=== PATIENT | female | born 1980 | race Hispanic/Latino ===

== ENCOUNTER 2017-04-28 17:50 | Inpatient (IN) | payer MEDICARE ==
[~2017-04-28 17:50] MED LIST: ATIVAN ONE
--- NOTE | 2017-04-28 18:00 | Emergency Department Report ---
ED Seizure HPI - General Stated Complaint: SEIZURE Time Seen by Provider: 04/28/17 18:00 - History of Present Illness Initial Comments: Patient is a 36-year-old female past medical history of seizure disorder. Presents with multiple seizures history is limited due to patient's condition. History provided by boyfriend and EMS. Patient had multiple seizure episodes today she takes Keppra and other medications that the boyfriend can't remember. Today the patient was having multiple seizures back to back and vomited she called EMS. She was having a seizure when EMS arrived and she was giving 5 mg of Versed. Patient comes into the ED actively seizing. - Related Data Home Medications Medication Instructions Recorded Confirmed Last Taken ALPRAZolam [Xanax TAB] 2 mg PO BID 04/28/17 04/28/17 Unknown ARIPiprazole [Abilify TAB] 15 mg PO QHS 04/28/17 04/28/17 Unknown Dextroamphetamine/Amphetamine 20 mg PO BID 04/28/17 04/28/17 Unknown [Adderall] Meloxicam [Mobic] 15 mg PO BID PRN 04/28/17 04/28/17 Unknown Multivitamin Tab [Multiple Vitamin 1 tab PO QDAY 04/28/17 04/28/17 Unknown TAB (Theragran)] Phenytoin [Dilantin] 100 mg PO TID 04/28/17 04/28/17 Unknown Quetiapine Fumarate [SEROquel XR] 300 mg PO QHS 04/28/17 04/28/17 Unknown Allergies Allergy/AdvReac Type Severity Reaction Status Date / Time amoxicillin Allergy Angioedema Verified 03/03/16 18:39 cefaclor [From Ceclor] Allergy Rash Verified 04/28/17 18:26 erythromycin base Allergy Angioedema Verified 03/03/16 18:39 ketorolac tromethamine Allergy Seizure Verified 03/03/16 18:39 [From Toradol] latex Allergy Rash Verified 04/28/17 18:26 morphine Allergy Rash Verified 04/28/17 18:26 Penicillins Allergy Angioedema Verified 03/03/16 18:39 sulfamethoxazole Allergy Rash Verified 04/28/17 18:26 [From Bactrim] tramadol Allergy Seizure Verified 04/28/17 18:26 trimethoprim [From Bactrim] Allergy Rash Verified 04/28/17 18:26 ED Review of Systems ROS: Stated complaint: SEIZURE Other details as noted in HPI Comment: Unobtainable due to pts medical conditions (patient is seizing) ED Past Medical Hx - Past Medical History Hx Hypertension: Yes Hx Seizures: Yes Hx Psychiatric Treatment: Yes (PTSD) - Surgical History Additional Surgical History: hysterectomy,tubiligation x2 - Social History Smoking Status: Current Every Day Smoker Substance Use Type: None - Medications Home Medications: Home Medications Medication Instructions Recorded Confirmed Last Taken Type ALPRAZolam [Xanax TAB] 2 mg PO BID 04/28/17 04/28/17 Unknown History ARIPiprazole [Abilify TAB] 15 mg PO QHS 04/28/17 04/28/17 Unknown History Dextroamphetamine/Amphetamine 20 mg PO BID 04/28/17 04/28/17 Unknown History [Adderall] Meloxicam [Mobic] 15 mg PO BID PRN 04/28/17 04/28/17 Unknown History Multivitamin Tab [Multiple Vitamin 1 tab PO QDAY 04/28/17 04/28/17 Unknown History TAB (Theragran)] Phenytoin [Dilantin] 100 mg PO TID 04/28/17 04/28/17 Unknown History Quetiapine Fumarate [SEROquel XR] 300 mg PO QHS 04/28/17 04/28/17 Unknown History ED Physical Exam - General General appearance: obtunded - Head Head exam: Present: atraumatic, normocephalic - Eye Eye exam: Present: normal appearance, other (pupils are sluggish response to light) - ENT ENT exam: Present: normal exam - Neck Neck exam: Present: normal inspection - Respiratory Respiratory exam: Present: normal lung sounds bilaterally - Cardiovascular Cardiovascular Exam: Present: regular rate - GI/Abdominal GI/Abdominal exam: Present: soft. Absent: distended, tenderness - Extremities Exam Extremities exam: Absent: tenderness, joint swelling - Neurological Exam Neurological exam: Present: altered, CN II-XII intact - Psychiatric Psychiatric exam: Present: normal affect - Skin Skin exam: Present: warm ED Course Vital Signs 04/28/17 04/28/17 04/28/17 17:50 18:00 18:10 Temperature 98.0 F Pulse Rate 107 H 120 H 105 H Respiratory 20 28 H 15 Rate Blood Pressure 121/86 121/86 121/85 O2 Sat by Pulse 98 98 96 Oximetry 04/28/17 04/28/17 04/28/17 18:20 18:30 18:40 Temperature Pulse Rate 86 99 H 100 H Respiratory 25 H 20 18 Rate Blood Pressure 116/84 107/77 107/77 O2 Sat by Pulse 99 98 99 Oximetry 04/28/17 04/28/17 04/28/17 18:48 18:50 19:09 Temperature Pulse Rate 93 H Respiratory 20 19 Rate Blood Pressure 110/74 110/74 O2 Sat by Pulse 100 100 Oximetry 04/28/17 04/28/17 04/28/17 19:10 19:20 19:30 Temperature Pulse Rate 90 90 90 Respiratory 13 20 14 Rate Blood Pressure 110/74 108/75 114/68 O2 Sat by Pulse 100 99 98 Oximetry 04/28/17 04/28/17 04/28/17 19:40 19:46 19:50 Temperature Pulse Rate 98 H 89 Respiratory 16 16 16 Rate Blood Pressure 114/68 110/75 O2 Sat by Pulse 98 97 Oximetry 04/28/17 04/28/17 04/28/17 20:00 20:10 20:20 Temperature Pulse Rate 88 107 H 91 H Respiratory 15 13 17 Rate Blood Pressure 110/78 110/78 105/74 O2 Sat by Pulse 97 98 97 Oximetry 04/28/17 04/28/17 04/28/17 20:30 20:41 20:51 Temperature Pulse Rate 91 H 99 H 87 Respiratory 14 21 17 Rate Blood Pressure 112/75 105/74 105/74 O2 Sat by Pulse 98 98 98 Oximetry 04/28/17 04/28/17 04/28/17 21:01 21:11 21:21 Temperature Pulse Rate 94 H 103 H 88 Respiratory 20 16 17 Rate Blood Pressure 105/74 105/74 105/74 O2 Sat by Pulse 99 98 99 Oximetry 04/28/17 04/28/17 04/28/17 21:31 21:55 21:57 Temperature Pulse Rate 101 H Respiratory 20 18 18 Rate Blood Pressure 105/74 O2 Sat by Pulse 99 Oximetry - Reevaluation(s) Reevaluation #1: 04/28/17 22:22 Patient is no longer postictal discussed the patient that she will be admitted to the hospital for further care sugars and plan. She still states she is in pain we'll give patient a dose of IV fentanyl. ED Medical Decision Making - Lab Data Result diagrams: 04/28/17 18:18 04/28/17 18:18 Laboratory Results - last 24 hr 04/28/17 04/28/17 04/28/17 18:18 18:18 18:18 WBC 7.2 RBC 4.36 Hgb 14.0 Hct 41.0 MCV 94 MCH 32 MCHC 34 RDW 13.5 Plt Count 240 Lymph % (Auto) 32.4 [place] % (Auto) 12.0 H Eos % (Auto) 9.7 H Baso % (Auto) 0.5 Lymph # 2.3 [place] # 0.9 H Eos # 0.7 H Baso # 0.0 Seg Neutrophils % 45.4 Seg Neutrophils # 3.3 Sodium 139 Potassium 3.5 L Chloride 100.1 Carbon Dioxide 26 Anion Gap 16 BUN 3 L Creatinine 0.8 Estimated GFR > 60 BUN/Creatinine Ratio 3.75 Glucose 87 Lactic Acid 2.00 Calcium 10.0 Total Bilirubin 0.30 AST 148 H ALT 229 H Alkaline Phosphatase 105 Total Creatine Kinase Total Protein 5.5 L Albumin 3.6 L Albumin/Globulin Ratio 1.9 04/28/17 18:18 WBC RBC Hgb Hct MCV MCH MCHC RDW Plt Count Lymph % (Auto) [place] % (Auto) Eos % (Auto) Baso % (Auto) Lymph # [place] # Eos # Baso # Seg Neutrophils % Seg Neutrophils # Sodium Potassium Chloride Carbon Dioxide Anion Gap BUN Creatinine Estimated GFR BUN/Creatinine Ratio Glucose Lactic Acid Calcium Total Bilirubin AST ALT Alkaline Phosphatase Total Creatine Kinase 650 H Total Protein Albumin Albumin/Globulin Ratio - Radiology Data Radiology results: report reviewed, image reviewed CT imaging of head shows no acute intracranial abnormality. - Medical Decision Making Chief medical diagnosis: Status epilepticus Differential diagnosis: Pseudoseizure, hyponatremia, brain tumor We'll get CBC, lactic acid, UA, drug screen, CT head, Ativan, Keppra Patient has multiple episodes of seizures greater than 3 in the ED however this she has only been post ictal for the first seizure. We'll continue to monitor due to patient's multiple [id number] seizures patient will be admitted to the hospital discussed plan with the patient's boyfriend and patient they agree with plan Critical Care Time: Yes Critical care time in (mins) excluding proc time.: 30 Critical care attestation.: If time is entered above; I have spent that time in minutes in the direct care of this critically ill patient, excluding procedure time. Critical care time in evaluating patient 20 minutes Critical care and interpreting image and lab studies 5 minutes Critical care time spent reviewing old records 0 minutes Critical care time spent with family 5 minutes Critical Care Time: 30 minutes spent at patient's that time due to multiple [id number] seizures patient had in the ER. ED Disposition Clinical Impression: Elevated liver enzymes, Elevated creatine kinase level, Seizures, Myalgia Disposition: OP ADMIT IP TO THIS HOSP Is pt being admited?: Yes Does the pt Need Aspirin: No Condition: Stable Time of Disposition: 22:18
[2017-04-28] MEDS ORDERED: ZOFRAN IV ONE (18:02)
[2017-04-28] MEDS ORDERED: SUBLIMAZE IV ONE ×2 (18:03→21:38)
[2017-04-28] MEDS ORDERED: NACL 0.9% 1000 ML 1,000 ML IV ONE ×2 (18:03→21:01)
[2017-04-28] MEDS ORDERED: KEPPRA 1,000 MG in D5W 100 ML IV ONE (18:11)
[2017-04-28] MEDS ORDERED: KEPPRA 1,000 MG/NS 0.75% 100ML 1,000 MG/100 ML BAG IV ONE (18:11)
[2017-04-28 18:37] LABS: Basophils % (Auto) 0.5 % (0.0-1.8); Eosinophils % (Auto) 9.7 % (0.0-4.3); Mean Corpuscular HGB Conc 34 % (30-34); Mean Corpuscular Hemoglobin 32 pg (28-32); Mean Corpuscular Volume 94 fl (79-97); Platelet Count 240 K/mm3 (140-440); Red Blood Count 4.36 M/mm3 (3.65-5.03); Red Cell Distribution Width 13.5 % (13.2-15.2); White Blood Count 7.2 K/mm3 (4.5-11.0)
[2017-04-28 18:58] LABS: Alanine Aminotransferase 229 units/L (7-56); Albumin 3.6 g/dL (3.9-5); Albumin/Globulin Ratio 1.9 %; Alkaline Phosphatase 105 units/L (35-129); BUN/Creatinine Ratio 3.75; Blood Urea Nitrogen 3 mg/dL (7-17); Carbon Dioxide 26 mmol/L (22-30); Glucose 87 mg/dL (65-100); Total Protein 5.5 g/dL (6.3-8.2)
[2017-04-28 18:59] LABS: Anion Gap 16 mmol/L; Chloride 100.1 mmol/L (98-107); Potassium 3.5 mmol/L (3.6-5.0); Sodium 139 mmol/L (137-145)
--- NOTE | 2017-04-28 19:31 | Cat Scan Report ---
FINAL REPORT EXAM: CT HEAD/BRAIN WO CON HISTORY: seizures TECHNIQUE: CT was performed from the foramen magnum through the vertex in the axial plane without the use of intravenous contrast. PRIORS: None. FINDINGS: The fitzpatrick/white matter attenuation pattern is normal. There is no mass lesion or mass effect. There are no abnormal extra-axial fluid collections. There is no evidence of acute intracranial hemorrhage or infarct. The ventricles are of normal size and configuration. The skull and orbits are unremarkable. There is mild mucosal thickening in the bilateral maxillary sinuses which were not completely scanned. IMPRESSION: Normal CT of the head.
--- NOTE | 2017-04-28 21:08 | Admit Criteria Form ---
Admission Criteria Documentation: SEIZURE Clinical Indications for Admission to Inpatient Care (Place 'X' for any and all applicable criteria): Admission is indicated for seizure and ANY ONE of the following(1)(2)(3)(4)(5): [X ]I. Inpatient admission required rather than observation care (Also use Seizure: Observation Care Criteria as appropriate) because of ANY ONE of the following: [ ]a) Altered mental status that is severe or persistent [ ]b) New focal neurologic deficit that is severe or persistent [ ]c) Metabolic disorder (eg, hypoglycemia, hyponatremia) that is severe or persistent [ X]d) Recurrent seizure [ ]e) Outpatient antiseizure regimen cannot be established (eg , patient cannot tolerate medication, initiation requires inpatient care) [ ]f) Need for ongoing intravenous infusion of antiseizure medication [ ]g) Cardiac arrhythmias of immediate concern [ ]h) Cerebral bleeding, hydrocephalus, or vasospasm monitoring (14) [ ]i) Increased intracranial pressure or cerebral edema monitoring (15) [X ]j) Other treatment or monitoring requiring inpatient admission [ ]II. Status epilepticus [A] or repetitive seizures not controlled with emergent treatment (6)(8) [ ]III. Brain disorder (eg, tumor, edema, and hydrocephalus) that requiring monitoring or intervention available only at inpatient level of care. [ ]IV. Brain insult (eg, severe trauma, stroke, drug toxicity, or withdrawal) that requires monitoring or intervention available only at inpatient level of care (10)(11) Extended stay beyond goal length of stay may be needed for (22) [ ]a) Complications of status epilepticus [ ]b) Refractory status epilepticus [ ]c) Etiology-specific therapy for conditions such as MATRIX SUPERVISOR infection, head injury,eclampsia, severe metabolic abnormalities, and brain tumor [ ]d) Residual neurologic damage, [ ]e) Initiation of significant change to anticonvulsant treatment [ ]f) Older patients (65 years or older) [ ]g) Patient requiring intubation (eg, to protect airway) The original [facility] content created by [facility] has been revised. The portions of the content which have been revised are identified through the use of italic text or in bold, and [facility] has neither reviewed nor approved the modified material. All other unmodified content is copyright [facility]. Please see references footnoted in the original [facility] edition 2016 Admission Criteria Met: Yes
[2017-04-28] MEDS ORDERED: MORPHINE IV ONE (21:28)
[2017-04-28] MEDS: DILAUDID IV PRN (22:44)
[2017-04-28] MEDS: ABILIFY PO SCH (23:00)
[2017-04-28] MEDS ORDERED: NACL 0.9% 1000 ML 1,000 ML IV SCH (23:00)
[2017-04-28] MEDS: KEPPRA 500 MG in D5W 100 ML IV SCH (23:00)
[2017-04-29 02:01] LABS: Creatine Kinase MB 9.4 ng/mL (0.0-4.0)
[2017-04-29 02:06] LABS: Creatine Kinase 511 units/L (30-135)
[2017-04-29 06:30] LABS: Creatine Kinase MB 8.4 ng/mL (0.0-4.0)
[2017-04-29 06:31] LABS: Creatine Kinase 457 units/L (30-135)
[2017-04-29 06:43] LABS: BUN/Creatinine Ratio 3.75; Blood Urea Nitrogen 3 mg/dL (7-17); Calcium 8.4 mg/dL (8.4-10.2); Carbon Dioxide 20 mmol/L (22-30); Chloride 105.2 mmol/L (98-107); Glucose 81 mg/dL (65-100); Sodium 138 mmol/L (137-145)
[2017-04-29] MEDS: ZOFRAN IV PRN ×2 (07:10→20:53)
[2017-04-29 07:12] LABS: Anion Gap 18 mmol/L; Potassium 4.7 mmol/L (3.6-5.0)
--- NOTE | 2017-04-29 08:16 | History and Physical Report ---
CHIEF COMPLAINT: Seizure attack. HISTORY OF PRESENTING ILLNESS: The patient is a 36-year-old female noted to have had current seizure going on for the last few days. Patient's significant other said that the patient has had multiple seizures in the last 1 week and also boyfriend noted that the frequency of seizure type was more on 04/28/2017 and said that he believes that the Dilantin medication that the patient is taking is no longer working. The patient denied history of ingestion of alcohol and was brought in by EMS to the Emergency Room actively seizing. There was no history of biting of tongue or injury. The patient was subsequently giving medications that include Keppra and patient's seizure activity eventually stopped. PAST MEDICAL HISTORY: Pertinent for seizure disorder, also the patient has past history of hypertension and PTSD. PAST SURGICAL HISTORY: Pertinent for hysterectomy and tubal ligation. FAMILY HISTORY: Noncontributory. SOCIAL HISTORY: The patient smokes cigarettes on daily disease, does not drink alcohol and does not use illicit drugs. MEDICATIONS: The patient is on Xanax 2 mg by mouth twice daily, Abilify 15 mg by mouth at bedtime, Adderall 20 mg p.o. b.i.d., Mobic or meloxicam 15 mg by mouth twice daily, multivitamin 1 tablet by mouth daily, Dilantin 100 mg by mouth t.i.d., quetiapine or Seroquel XR 300 mg at bedtime. ALLERGIES: THE PATIENT IS ALLERGIC TO AMOXICILLIN, CEFACLOR, ERYTHROMYCIN BASED ON OTHER MEDICATIONS. REVIEW OF SYSTEMS: CONSTITUTIONAL: There is no fever, no chills, no diaphoresis. HEENT: There is no headache or sore throat. CARDIOVASCULAR: There is no chest pain or orthopnea. RESPIRATORY: There is no shortness of breath or cough. GASTROINTESTINAL: Nausea and vomiting noted. There is no abdominal pain, diarrhea or constipation. NEUROLOGICAL: Seizure attach noted with change in mental status after the seizure attach noted. MUSCULOSKELETAL: Generalized body pain noted. No joint swelling. DERMATOLOGICAL: There is no skin rash or itching. GENITOURINARY: There is no dysuria, hematuria, flank pain or urinary incontinence. Rest of system review is normal. PHYSICAL EXAMINATION: GENERAL: At the time of exam, the patient was found to be lethargic, but arousable and able to communicate, looking weak, but not in acute distress. VITAL SIGNS: Show temperature of 98.5, pulse of 92, respirations 15, blood pressure 112/74, O2 sat of 93% on room air. HEENT: Shows pupils to be equal, round and reactive to light and accommodating. Extraocular muscles are intact. NECK: Supple with no JVD or carotid bruit. CARDIOVASCULAR: Shows first and second heart sounds with no gallops or murmur. RESPIRATORY: Showed good air entry on both sides of the lung with no abnormal breath sounds. GASTROINTESTINAL: Showed abdomen to be full, soft, nontender with no organomegaly or rigidity. NEUROLOGIC: Shows no focal deficit, but said that the patient is lethargic, but arousable and able to communicate. MUSCULOSKELETAL: Shows no joint swelling or tenderness. DERMATOLOGICAL: Shows no skin rash. GENITOURINARY: Showing no costovertebral angle tenderness. PERTINENT LABORATORY AND IMAGING STUDIES: The patient had a CT of the head done without contrast that was unremarkable. CBC showed normal white count, normal hemoglobin and normal hematocrit with CBC differential showing high monocyte count and high eosinophil count. The patient's chemistry shows slight decrease in potassium with value of 3.5 and normal sodium, normal chloride and liver transaminases showed elevated AST of 148-229, normal alkaline phosphatase with elevated total creatinine kinase of 650. The patient's albumin level shows slightly decreased level of 3.6. DIAGNOSES: 1. Postictal state. 2. Rhabdomyolysis. 3. Acute gastritis. PLAN: The patient will be admitted to medical floor on telemetry and will have neurology consult if the neurologist is available today. The patient will have basic metabolic panel checked in the morning of 04/29/2017 and will have cardiac enzymes involving troponin, total CK and CK-MB checked q. 6 hours x2 more level because of the diagnosis of rhabdomyolysis. The patient will be on IV Keppra 500 mg q. 12 hours. The patient will be on IV hydromorphone or Dilaudid 1 mg q. 6 hours as needed for pain. THE PATIENT IS ALLERGIC TO MORPHINE. She states she has had Dilaudid in the past. The patient will also be on IV Zofran 4 mg every 6 hours as needed for nausea and vomiting and will be on IV normal saline at 125 mL an hour. The patient will be on her home medications as listed in the medication reconciliation section and the patient will continue on Keppra until evaluated by a neurologist. JOB# [id number] OCN/PETEY CALDERA
[2017-04-29] MEDS ORDERED: THERAGRAN Tab PO SCH (10:00)
[2017-04-29] MEDS ORDERED: HEPARIN SUB-Q SCH (10:00)
[2017-04-29] MEDS: XANAX PO SCH ×2 (11:14→21:29)
[2017-04-29] MEDS: DILAUDID IV PRN ×4 (11:19→23:36)
[2017-04-29] MEDS ORDERED: PHENERGAN PO PRN (13:22)
[2017-04-29] MEDS ORDERED: DILANTIN PO SCH (14:00)
[2017-04-29] MEDS: KEPPRA 500 MG in D5W 100 ML IV SCH ×2 (15:00→22:05)
[2017-04-29 15:21] LABS: Urine Drugs of Abuse Note Disclamer
[2017-04-29 15:32] LABS: Bilirubin,Urine NEG (Negative); Blood,Urine NEG (Negative); Ketones,Urine NEG (Negative); Leukocyte Esterase,Urine NEG (Negative); Mucus,Urine FEW /HPF; Nitrite,Urine NEG (Negative); Protein,Urine <15 mg/dL mg/dL (Negative); RBC,Urine < 1.0 /HPF (0.0-6.0); Urobilinogen,Urine < 2.0 mg/dL (<2.0); WBC,Urine < 1.0 /HPF (0.0-6.0)
--- NOTE | 2017-04-29 17:42 | Progress Note ---
Assessment and Plan Assessment and plan: Recurrent seizure - Patient is on IV Ativan, Keppra and continue her phenytoin - neurology consult placed for Dr Euceda Chronic pain syndrome - Pain control Stress disorder - Continue her medications Depression - Continue medications Transaminitis - due to multiple medications DVT prophylaxis - Lovenox Disposition - Discharged tomorrow after evaluated by neurology History Interval history: Patient is anxious and irritable, she is complaining of pain all over. She says she has been under a lot of stress. Hospitalist Physical - Physical exam Narrative exam: Not in cardiopulmonary distress. The patient appeared well nourished and normally developed. Vital signs as documented. Head exam is unremarkable. No scleral icterus . Neck is without jugular venous distension, thyromegaly, or carotid bruits. Lungs are clear to auscultation. Cardiac exam reveals regular rate and Rhythm. First and second heart sounds normal. No murmurs, rubs or gallops. Abdominal exam reveals normal bowel sounds, no masses, no organomegaly and no aortic enlargement. Extremities are nonedematous and both femoral and pedal pulses are normal. 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 - Constitutional Vitals: Temp Pulse Resp BP Pulse Ox 97.8 F 96 H 20 114/86 93 04/29/17 12:00 04/29/17 12:00 04/29/17 12:00 04/29/17 12:00 04/29/17 12:00 Results - Labs CBC & Chem 7: 04/28/17 18:18 04/29/17 05:15 Labs: Laboratory Last Values WBC 7.2 K/mm3 (4.5-11.0) 04/28/17 18:18 RBC 4.36 M/mm3 (3.65-5.03) 04/28/17 18:18 Hgb 14.0 gm/dl (10.1-14.3) 04/28/17 18:18 Hct 41.0 % (30.3-42.9) 04/28/17 18:18 MCV 94 fl (79-97) 04/28/17 18:18 MCH 32 pg (28-32) 04/28/17 18:18 MCHC 34 % (30-34) 04/28/17 18:18 RDW 13.5 % (13.2-15.2) 04/28/17 18:18 Plt Count 240 K/mm3 (140-440) 04/28/17 18:18 Lymph % (Auto) 32.4 % (13.4-35.0) 04/28/17 18:18 [place] % (Auto) 12.0 % (0.0-7.3) H 04/28/17 18:18 Eos % (Auto) 9.7 % (0.0-4.3) H 04/28/17 18:18 Baso % (Auto) 0.5 % (0.0-1.8) 04/28/17 18:18 Lymph # 2.3 K/mm3 (1.2-5.4) 04/28/17 18:18 [place] # 0.9 K/mm3 (0.0-0.8) H 04/28/17 18:18 Eos # 0.7 K/mm3 (0.0-0.4) H 04/28/17 18:18 Baso # 0.0 K/mm3 (0.0-0.1) 04/28/17 18:18 Seg Neutrophils % 45.4 % (40.0-70.0) 04/28/17 18:18 Seg Neutrophils # 3.3 K/mm3 (1.8-7.7) 04/28/17 18:18 Sodium 138 mmol/L (137-145) 04/29/17 05:15 Potassium 4.7 mmol/L (3.6-5.0) D 04/29/17 05:15 Chloride 105.2 mmol/L (98-107) 04/29/17 05:15 Carbon Dioxide 20 mmol/L (22-30) L 04/29/17 05:15 Anion Gap 18 mmol/L 04/29/17 05:15 BUN 3 mg/dL (7-17) L 04/29/17 05:15 Creatinine 0.8 mg/dL (0.7-1.2) 04/29/17 05:15 Estimated GFR > 60 ml/min 04/29/17 05:15 BUN/Creatinine Ratio 3.75 % 04/29/17 05:15 Glucose 81 mg/dL (65-100) 04/29/17 05:15 Lactic Acid 2.00 mmol/L (0.7-2.0) 04/28/17 18:18 Calcium 8.4 mg/dL (8.4-10.2) D 04/29/17 05:15 Total Bilirubin 0.30 mg/dL (0.1-1.2) 04/28/17 18:18 AST 148 units/L (5-40) H 04/28/17 18:18 ALT 229 units/L (7-56) H 04/28/17 18:18 Alkaline Phosphatase 105 units/L (35-129) 04/28/17 18:18 Total Creatine Kinase 457 units/L (30-135) H 04/29/17 05:15 CK-MB (CK-2) 8.4 ng/mL (0.0-4.0) H 04/29/17 05:15 CK-MB (CK-2) Rel Index 1.8 (0-4) 04/29/17 05:15 Troponin T < 0.010 ng/mL (0.00-0.029) 04/29/17 05:15 Total Protein 5.5 g/dL (6.3-8.2) L 04/28/17 18:18 Albumin 3.6 g/dL (3.9-5) L 04/28/17 18:18 Albumin/Globulin Ratio 1.9 % 04/28/17 18:18 Urine Color Yellow (Yellow) 04/29/17 15:00 Urine Turbidity Clear (Clear) 04/29/17 15:00 Urine pH 7.0 (5.0-7.0) 04/29/17 15:00 Ur Specific [place] 1.017 (1.003-1.030) 04/29/17 15:00 Urine Protein <15 mg/dl mg/dL (Negative) 04/29/17 15:00 Urine Glucose (UA) Neg mg/dL (Negative) 04/29/17 15:00 Urine Ketones Neg mg/dL (Negative) 04/29/17 15:00 Urine Blood Neg (Negative) 04/29/17 15:00 Urine Nitrite Neg (Negative) 04/29/17 15:00 Urine Bilirubin Neg (Negative) 04/29/17 15:00 Urine Urobilinogen < 2.0 mg/dL (<2.0) 04/29/17 15:00 Ur Leukocyte Esterase Neg (Negative) 04/29/17 15:00 Urine WBC (Auto) < 1.0 /HPF (0.0-6.0) 04/29/17 15:00 Urine RBC (Auto) < 1.0 /HPF (0.0-6.0) 04/29/17 15:00 U Epithel Cells (Auto) 6.0 /HPF (0-13.0) 04/29/17 15:00 Urine Mucus Few /HPF 04/29/17 15:00 Urine Opiates Screen Presumptive negative 04/29/17 15:00 Urine Methadone Screen Presumptive negative 04/29/17 15:00 Ur Barbiturates Screen Presumptive negative 04/29/17 15:00 Ur Phencyclidine Scrn Presumptive negative 04/29/17 15:00 Ur Amphetamines Screen Presumptive positive 04/29/17 15:00 U Benzodiazepines Scrn Presumptive positive 04/29/17 15:00 Urine Cocaine Screen Presumptive negative 04/29/17 15:00 U Marijuana (THC) Screen Presumptive positive 04/29/17 15:00 Drugs of Abuse Note Disclamer 04/29/17 15:00
[2017-04-29] MEDS: ATIVAN IV PRN ×2 (20:56→23:35)
[2017-04-29] MEDS ORDERED: NON-FORMULARY (Quetiapine Fumarate [Seroquel Xr] 300 MG) PO SCH (22:00)
[2017-04-29] MEDS ORDERED: LOVENOX SUB-Q SCH (22:00)
[2017-04-29] MEDS ORDERED: DEXTROAMPHETAMINE PO SCH (22:00)
[2017-04-29] MEDS ORDERED: AMPHETAMINE PO SCH (22:00)
[2017-04-29] MEDS: ABILIFY PO SCH (22:05)
[2017-04-30 00:38] VITALS: BP 113/75
[2017-04-30] MEDS: DILAUDID IV PRN (03:38)
[2017-04-30] MEDS: ATIVAN IV PRN (03:38)
[2017-04-30 06:04] LABS: Alanine Aminotransferase 222 units/L (7-56); Albumin 3.4 g/dL (3.9-5); Albumin/Globulin Ratio 1.6 %; Alkaline Phosphatase 99 units/L (35-129); BUN/Creatinine Ratio 8.33; Blood Urea Nitrogen 5 mg/dL (7-17); Carbon Dioxide 27 mmol/L (22-30); Chloride 103.9 mmol/L (98-107); Glucose 88 mg/dL (65-100); Potassium 3.7 mmol/L (3.6-5.0); Sodium 143 mmol/L (137-145); Total Protein 5.5 g/dL (6.3-8.2)
[2017-04-30 06:47] LABS: Bilirubin,Direct < 0.2 mg/dL (0-0.2); Bilirubin,Indirect 0.1 mg/dL
[2017-04-30 06:48] LABS: Anion Gap 16 mmol/L
--- NOTE | 2017-04-30 07:17 | Discharge Summary ---
Providers - Providers Date of Admission: 04/28/17 22:07 Date of discharge: 04/30/17 Attending physician: ANA MURPHY MD 04/29/17 16:50 Consult to Physician [CONS] Routine Consulting Provider: MARIELA PITTS Reason For Exam: frequent seizures Place consult to:: Neurology Primary care physician: DIRECT CARE PROFESSIONAL Hospitalization Reason for admission: recurrent seizures, transaminitis Condition: Stable Pertinent studies: CT head negative Hospital course: Admission H&P 36-year-old female with past medical history significant for seizure, depression, anxiety disorder presented to the emergency department she had 20 episodes of seizure in the last 1 week. She says she has been taking her antiseizure medications as ordered by her neurologist. She said her Dilantin was decreased from 600 mg daily to 300 mg daily by her neurologist. Patient said she has been under a lot of stress recently after her son went to skilled nursing. Patient denied using drugs or alcohol. But in the emergency department UDS was done and is positive for amphetamine, marijuana and benzos. Patient was admitted to the floor and she was treated with IV Keppra, Dilantin , Ativan. She was also complaining generalized chronic pain and she was given pain medication for that. Neurology consult was placed and supposed to be seen this morning. The patient left AMA this morning according to the nursing note. The Nursing note stated that the patient had seizure episode this morning and she refused all the meds and left AMA. Patient has trans and I ordered hepatitis panel and comeback positive this morning and the patient left before I saw and discussed with her the results. Certified letter was sent regarding her result. Disposition: [id number] LEFT AGAINST MED ADVICE Time spent for discharge: 31 minutes - Discharge Diagnoses (1) Elevated liver enzymes Status: Acute (2) Myalgia Status: Acute (3) Seizures Status: Acute Core Measure Documentation - Palliative Care Palliative Care/ Comfort Measures: Not Applicable - Core Measures Any of the following diagnoses?: none Exam - Physical Exam Narrative exam: P/E was not done this morning, she left before my shift started. - Constitutional Vitals: Temp Pulse Resp BP Pulse Ox 98.1 F 93 H 18 113/75 97 04/30/17 00:37 04/30/17 00:37 04/30/17 04:08 04/30/17 00:37 04/30/17 00:37 Plan Activity: no restrictions Weight Bearing Status: Full Weight Bearing Diet: regular Follow up with: PRIMARY CARE, [Primary Care Provider] - 3-5 Days Forms: AMA Form
[2017-04-30] MEDS ORDERED: DILANTIN PO SCH (10:00)
== END 2017-04-30 06:05 | disposition left against medical advice (07) | DRG 101 ==
LOC: ED 17:50 → 4A 22:07
PROVIDERS: ADMIT Internal Medicine; ATTEND Internal Medicine
DX: G40.909 Epilepsy, unspecified, not intractable, without status epilepticus (principal); M62.82 Rhabdomyolysis; K29.00 Acute gastritis without bleeding; Z88.0 Allergy status to penicillin; Z88.8 Allergy status to other drugs, medicaments and biological substances; Z88.5 Allergy status to narcotic agent; Z88.6 Allergy status to analgesic agent; I10 Essential (primary) hypertension; F17.200 Nicotine dependence, unspecified, uncomplicated; Z90.710 Acquired absence of both cervix and uterus; Z98.51 Tubal ligation status; G89.4 Chronic pain syndrome; F32.9 Major depressive disorder, single episode, unspecified
CPT/HCPCS: 36415; 70450; 80048; 80053; 80074; 80307; 81001; 82140; 82550; 82553; 82962; 84484; 85025; 96361; 96365; 96375; 96376; 99406; J1170; J1644; J1650; J1953; J2060; J2270; J2405; J3010; J7030; Q0169

== ENCOUNTER 2019-08-23 13:53 | Emergency (ER) | payer MEDICARE ==
[2019-08-23 14:32] VITALS: BP 106/69
--- NOTE | 2019-08-23 14:34 | Emergency Department Report ---
Chief Complaint: Urogenital-Female Stated Complaint: UTI Time Seen by Provider: 08/23/19 14:30 - HPI History of Present Illness: This is a 39 y.o. F. that presents to the ER with low back pain and dysuria x 4 days. Reports diagnosis of UTI a few weeks ago without completion of medication. PMH of Hepatitis C, HTN, and epilepsy - Exam Vital Signs: Vital Signs 08/23/19 14:30 Temperature 98.1 F Pulse Rate 88 Respiratory 18 Rate Blood Pressure 106/69 O2 Sat by Pulse 96 Oximetry MSE screening note: Focused history and physical exam performed. Due to findings the following was ordered: UA and ED Disposition for MSE Condition: Stable
[2019-08-23 15:09] LABS: HCG Qualitative,Urine Negative (Negative)
[2019-08-23 15:11] LABS: Bilirubin,Urine NEG (Negative); Blood,Urine NEG (Negative); Color,Urine Yellow (Yellow); Mucus,Urine FEW /HPF; Protein,Urine <15 mg/dL mg/dL (Negative)
--- NOTE | 2019-08-23 15:27 | Emergency Department Report ---
ED General Adult HPI - General Chief complaint: Urogenital-Female Stated complaint: UTI Time Seen by Provider: 08/23/19 14:30 Source: patient Mode of arrival: Ambulatory Limitations: No Limitations - History of Present Illness Initial comments: Patient is a 39-year-old female who is presenting with lower abdominal pain. Patient states he has been present for approximately 2-3 days. She has urinary frequency and dysuria. Patient states the pain radiates from the lower abdomen to her lower back bilaterally. She denies nausea vomiting diarrhea at this time. Quality: burning Consistency: constant Improves with: none Worsens with: other (urinating) - Related Data Home Medications Medication Instructions Recorded Confirmed Last Taken ALPRAZolam [Xanax TAB] 2 mg PO BID 04/28/17 04/28/17 Unknown ARIPiprazole [Abilify TAB] 15 mg PO QHS 04/28/17 04/28/17 Unknown Dextroamphetamine/Amphetamine 20 mg PO BID 04/28/17 04/28/17 Unknown [Adderall] Meloxicam [Mobic] 15 mg PO BID PRN 04/28/17 04/28/17 Unknown Multivitamin Tab [Multiple Vitamin 1 tab PO QDAY 04/28/17 04/28/17 Unknown TAB (Theragran)] Phenytoin [Dilantin] 100 mg PO TID 04/28/17 04/28/17 Unknown Quetiapine Fumarate [SEROquel XR] 300 mg PO QHS 04/28/17 04/28/17 Unknown Previous Rx's Medication Instructions Recorded Last Taken Type Ciprofloxacin HCl [Ciprofloxacin 500 mg PO Q12HR #14 tab 08/23/19 Unknown Rx TAB] Ibuprofen [Motrin 800 MG tab] 800 mg PO Q8HR PRN #10 tablet 08/23/19 Unknown Rx Phenazopyridine [Pyridium] 200 mg PO BID #6 tab 08/23/19 Unknown Rx Allergies Allergy/AdvReac Type Severity Reaction Status Date / Time amoxicillin Allergy Angioedema Verified 03/03/16 18:39 cefaclor [From Ceclor] Allergy Rash Verified 04/28/17 18:26 erythromycin base Allergy Angioedema Verified 03/03/16 18:39 latex Allergy Rash Verified 04/28/17 18:26 Penicillins Allergy Angioedema Verified 03/03/16 18:39 sulfamethoxazole Allergy Rash Verified 04/28/17 18:26 [From Bactrim] trimethoprim [From Bactrim] Allergy Rash Verified 04/28/17 18:26 ED Review of Systems ROS: Stated complaint: UTI Other details as noted in HPI Comment: All other systems reviewed and negative ED Past Medical Hx - Past Medical History Hx Hypertension: No Hx Heart Attack/AMI: No Hx Congestive Heart Failure: No Hx Diabetes: No Hx Deep Vein Thrombosis: No Hx Pulmonary Embolism: No Hx Sickle Cell Disease: No Hx Seizures: Yes Hx Psychiatric Treatment: Yes (PTSD) Hx Asthma: No Hx COPD: Yes Hx Dementia: No Hx HIV: No Additional medical history: MS. fibromyalgia. 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 - Surgical History Hx Coronary Stent: No Hx Open Heart Surgery: No Hx Pacemaker: No Hx Internal Defibrillator: No Hx Cholecystectomy: No Hx Appendectomy: No Hx Breast Surgery: No Additional Surgical History: hysterectomy,tubiligation x2 - Social History Smoking Status: Current Every Day Smoker - Medications Home Medications: Home Medications Medication Instructions Recorded Confirmed Last Taken Type ALPRAZolam [Xanax TAB] 2 mg PO BID 04/28/17 04/28/17 Unknown History ARIPiprazole [Abilify TAB] 15 mg PO QHS 04/28/17 04/28/17 Unknown History Dextroamphetamine/Amphetamine 20 mg PO BID 04/28/17 04/28/17 Unknown History [Adderall] Meloxicam [Mobic] 15 mg PO BID PRN 04/28/17 04/28/17 Unknown History Multivitamin Tab [Multiple Vitamin 1 tab PO QDAY 04/28/17 04/28/17 Unknown History TAB (Theragran)] Phenytoin [Dilantin] 100 mg PO TID 04/28/17 04/28/17 Unknown History Quetiapine Fumarate [SEROquel XR] 300 mg PO QHS 04/28/17 04/28/17 Unknown History Ciprofloxacin HCl [Ciprofloxacin 500 mg PO Q12HR #14 tab 08/23/19 Unknown Rx TAB] Ibuprofen [Motrin 800 MG tab] 800 mg PO Q8HR PRN #10 tablet 08/23/19 Unknown Rx Phenazopyridine [Pyridium] 200 mg PO BID #6 tab 08/23/19 Unknown Rx ED Physical Exam - General Limitations: No Limitations General appearance: alert, in no apparent distress - Head Head exam: Present: atraumatic, normocephalic - Eye Eye exam: Present: normal appearance - ENT ENT exam: Present: mucous membranes moist - Neck Neck exam: Present: normal inspection - Respiratory Respiratory exam: Present: normal lung sounds bilaterally. Absent: respiratory distress, wheezes, rales, rhonchi - Cardiovascular Cardiovascular Exam: Present: regular rate, normal rhythm. Absent: systolic murmur, diastolic murmur, rubs, gallop - GI/Abdominal GI/Abdominal exam: Present: soft, tenderness (suprapubic), normal bowel sounds. Absent: distended, guarding, rebound, rigid - Extremities Exam Extremities exam: Present: normal inspection - Back Exam Back exam: Present: normal inspection - Neurological Exam Neurological exam: Present: alert, oriented X3 - Psychiatric Psychiatric exam: Present: normal affect, normal mood - Skin Skin exam: Present: warm, dry, intact, normal color. Absent: rash ED Course Vital Signs 08/23/19 14:30 Temperature 98.1 F Pulse Rate 88 Respiratory 18 Rate Blood Pressure 106/69 O2 Sat by Pulse 96 Oximetry ED Medical Decision Making - Lab Data Lab Results 08/23/19 Range/Units 15:00 Urine Color Yellow (Yellow) Urine Turbidity Slightly-cloudy (Clear) Urine pH 5.0 (5.0-7.0) Ur Specific Dugger 1.019 (1.003-1.030) Urine Protein <15 mg/dl (Negative) mg/dL Urine Glucose (UA) Neg (Negative) mg/dL Urine Ketones Neg (Negative) mg/dL Urine Blood Neg (Negative) Urine Nitrite Pos (Negative) Ur Reducing Substances Not Reportable Urine Bilirubin Neg (Negative) Urine Ictotest Not Reportable Urine Urobilinogen 2.0 (<2.0) mg/dL Ur Leukocyte Esterase Mod (Negative) Urine WBC (Auto) 36.0 H (0.0-6.0) /HPF Urine RBC (Auto) 3.0 (0.0-6.0) /HPF U Epithel Cells (Auto) 1.0 (0-13.0) /HPF Urine Mucus Few /HPF Urine HCG, Qual Negative (Negative) - Medical Decision Making Patient does show evidence on her urinalysis of a moderate urinary tract infection. Patient started on Cipro be discharged home. Critical care attestation.: If time is entered above; I have spent that time in minutes in the direct care of this critically ill patient, excluding procedure time. ED Disposition Clinical Impression: Acute cystitis Qualifiers: Hematuria presence: without hematuria Qualified Code(s): N30.00 - Acute cystitis without hematuria Disposition: TO HOME OR SELFCARE Is pt being admited?: No Does the pt Need Aspirin: No Condition: Stable Instructions: Urinary Tract Infection in Women (ED) Referrals: JAIR HANSON MD [Staff Physician] - 3-5 Days Time of Disposition: 15:27
== END 2019-08-23 16:08 | disposition home or self-care (01) ==
LOC: ED 13:53
DX: N30.00 Acute cystitis without hematuria (principal); J44.9 Chronic obstructive pulmonary disease, unspecified; F17.200 Nicotine dependence, unspecified, uncomplicated; Z86.69 Personal history of other diseases of the nervous system and sense organs; Z90.710 Acquired absence of both cervix and uterus; Z98.51 Tubal ligation status; Z79.1 Long term (current) use of non-steroidal anti-inflammatories (NSAID); Z79.899 Other long term (current) drug therapy; Z88.1 Allergy status to other antibiotic agents; Z88.0 Allergy status to penicillin; Z88.2 Allergy status to sulfonamides; Z88.8 Allergy status to other drugs, medicaments and biological substances
CPT/HCPCS: 81001; 81025; 87076; 87086; 87186